=== PATIENT | female | born 1990 | race Caucasian/White ===

== ENCOUNTER 2021-08-30 15:37 | Inpatient (IN) ==
--- NOTE | 2021-08-30 16:14 | Emergency Department Note ---
Impression & Plan Depression with suicidal ideation, Urinary tract infection ED Provider Note NAME: LAUREN ROSE AGE: 31 SEX: F : 1990 ARRIVES VIA: Ambulance INFORMANT: Patient, ED PROVIDER(S): Chandler Mchugh DO CHIEF COMPLAINT: Mental health evaluation HPI: The patient is a 31-year-old female who presented to emergency department for mental health evaluation. The patient states that she has been having problems with thoughts of hurting herself over the last couple days. She was recently discharged from inpatient mental health in [facility] for similar complaints. She states that she has thoughts that she wants to overdose on her medications. She also complains of lower back pain. She denies having any vomiting but has had some nausea. She states she has been having irregular menses as well. She states that she does not feel that she is . She denies having any chest pain or fevers. She did not drink any alcohol today and she denies taking any medications to try to hurt her self. She states that she has been compliant with her outpatient medications. She does have a history of seizures and states that she had a seizure yesterday. ROS: See above HPI for pertinent positives & negatives. A total of 10 systems reviewed and were otherwise negative. PAST MEDICAL HISTORY: See Below PAST SURGICAL HISTORY: See Below FAMILY HISTORY: See Below SOCIAL HISTORY: See Below HOME MEDICATIONS: See Below ALLERGIES: See Below VITALS: See Below PHYSICAL EXAMINATION: GENERAL: Patient is awake alert in no acute distress patient is resting comfortably and showing no signs of anxiety EYES: The conjunctivae are clear. The pupils are round and reactive. EARS, NOSE, MOUTH AND THROAT: The nose is without any evidence of any deformity. NECK: The neck is nontender and supple. RESPIRATORY: Normal respiratory effort is noted there is no evidence of wheezing rhonchi or rales CARDIOVASCULAR: Regular rate and rhythm noted there no murmurs rubs or gallops normal S1 normal S2. GASTROINTESTINAL: The abdomen is soft. Abdomen is nontender. MUSCULOSKELETAL/EXTREMITIES: There is no evidence of gross deformity full range of motion is noted in the hips and shoulders. SKIN: There is no obvious evidence of any rash. There are no petechiae, pallor or cyanosis noted. NEUROLOGIC: Patient is awake alert and oriented x3 strength is symmetric patellar reflexes are 2+ bilaterally PSYCH: Patient makes poor eye contact mostly evaluation. She is currently admitting to suicidal ideation with a plan to overdose on medications. MEDICAL DECISION MAKING: The patient is a 31-year-old female who presented to emergency department for an evaluation of mental health evaluation. The patient had depression with suicidal ideation. She was recently released from a mental health inpatient stay for similar complaints. The patient was medically cleared in the emergency department. She was found to have signs of urinary tract infection on urinal ysis. She was started on antibiotics in the emergency department. She was also treated with pain medication as well as medication for anxiety in emergency department. The patient was evaluated by the mental health outpatient case manager. Triage Nursing notes reviewed. Prior medical records reviewed Vital Signs: reviewed and remarkable for no significant abnormalities Differential diagnosis: Mood disorder, infection, hypoglycemia, electrolyte abnormalities, cardiac sources, intracerebral event, toxicologic, trauma, neurologic, as well as other pathologies. ER treatment provided: See below Diagnostics interpreted by me: ECG: none Laboratory studies: As stated above and show below. Imaging studies: See below Consultation(s): none Past Med/Surg History Medical History (Updated 08/30/21 @ 20:24 by Chandler Mchugh DO) ADHD Asperger's disorder Autism Bipolar affect, depressed Depression with anxiety PTSD (post-traumatic stress disorder) Seizure Surgical History Hx of cholecystectomy Previous section Social History Smoking Status: Current every day smoker Tobacco Type: Cigarettes Feels Safe at Home: No Allergies Allergies Allergy/AdvReac Type Severity Reaction Status Date / Time Penicillins Allergy Unknown childhood Verified 08/30/21 16:08 reaction unknown Home Meds Home Medications Medication Instructions Recorded Confirmed aripiprazole 10 mg tablet 5 mg PO BID 08/30/21 08/30/21 bupropion HCl 100 mg tablet,12 hr 100 mg PO DAILY 08/30/21 08/30/21 sustained-release escitalopram oxalate 20 mg tablet 20 mg PO DAILY 08/30/21 08/30/21 ferrous sulfate 325 mg (65 mg 325 mg PO DAILY 08/30/21 08/30/21 iron) tablet hydroxyzine pamoate 25 mg capsule 25 mg PO BID PRN 08/30/21 08/30/21 ondansetron HCl 8 mg tablet 8 mg PO Q6 PRN 08/30/21 08/30/21 prazosin 2 mg capsule 2 mg PO HS 08/30/21 08/30/21 trazodone 150 mg tablet 150 mg PO HS 08/30/21 08/30/21 Results & Data (ED) Vital Signs Vital Signs - 24 hr 08/30/21 15:42 08/30/21 19:18 Temperature 36.5 C Temperature Source Oral Pulse Rate 86 Pulse Rate [Finger] 78 Pulse Rhythm Regular Pulse Strength Normal Respiratory Rate 18 20 Respiratory Effort / Characteristics Non-Labored Non-Labored Spontaneous Respiratory Depth Normal Respiratory Pattern Regular Blood Pressure 151/112 H Blood Pressure [Right Arm] 131/88 Blood Pressure Mean 125 Blood Pressure Mean [Right Arm] 102 Blood Pressure Position Lying Pulse Oximetry 96 97 Oxygen Delivery Method Room Air Room Air Sepsis Recent Fever Within 48 Hours No Sepsis New/Unexplained Change in Mental Status No Sepsis Action Taken by Nursing No Action Required Home Medications Current Medication List: was personally reviewed by me Laboratory Data Attestation: I reviewed the patient's lab results. Result diagrams: 08/30/21 16:28 08/30/21 16:28 Lab Results 08/30/21 08/30/21 08/30/21 Range/Units 16:28 16:28 16:28 WBC 5.78 (4.8-10.8) K/uL RBC 4.58 (4.2-5.4) M/uL Hgb 11.6 L (12.0-16.0) g/dL Hct 35.4 L (37-47) % MCV 77.3 L (80-100) fL MCH 25.3 (25-34) pg MCHC 32.8 (32-36) g/dL RDW Std Deviation 39.3 (36.4-46.3) fL RDW Coeff of Alejandro 13.9 (11.5-14.5) % Plt Count 196 (130-400) K/uL MPV 10.7 H (7.4-10.4) fL Immature Gran % (Auto) 0.0 % Neut % (Auto) 66.2 % Lymph % (Auto) 25.6 % [place] % (Auto) 4.7 % Eos % (Auto) 3.3 % Baso % (Auto) 0.2 % Neut # (Auto) 3.83 (1.4-6.5) K/uL Lymph # (Auto) 1.48 (1.2-3.4) K/uL [place] # (Auto) 0.27 (0.11-0.59) K/uL Eos # (Auto) 0.19 (0-0.5) K/uL Baso # (Auto) 0.01 (0-0.2) K/uL Immature Gran # (Auto) 0.00 (0.00-0.02) K/uL Sodium 137 (136-145) mmol/L Potassium 3.6 (3.5-5.1) mmol/L Chloride 103 (98-107) mmol/L Carbon Dioxide 26 (21-32) mmol/L Anion Gap 8 (3-11) BUN 7 (6-23) mg/dl Creatinine 0.63 (0.6-1.2) mg/dl Est Cr Clr Drug Dosing 180.2 ml/min Est GFR ( Amer) 140.5 ml/min Est GFR (Non-Af Amer) 121.2 ml/min BUN/Creatinine Ratio 11.1 (10-20) Glucose 100 H (70-99(Fasting)) mg/dl Calcium 9.3 (8.5-10.1) mg/dl Total Bilirubin 0.9 (0.2-1.0) mg/dl AST 23 (13-39) U/L ALT 28 (7-52) U/L Alkaline Phosphatase 72 (34-104) U/L Total Protein 7.4 (6.0-8.3) gm/dl Albumin 4.1 (3.4-5.0) gm/dl Globulin 3.3 (2.5-4.0) gm/dl Albumin/Globulin Ratio 1.2 (0.9-2) TSH 1.013 (0.300-4.500) uIu/ml HCG, Qual (Negative) Urine Color Urine Appearance (Clear) Urine pH (4.5-7.5) Ur Specific [place] (1.000-1.030) Urine Protein (Negative) Urine Glucose (UA) (Negative) Urine Ketones (Negative) Urine Blood (Negative) Urine Nitrite (Negative) Urine Bilirubin (Negative) Urine Urobilinogen (Negative) Ur Leukocyte Esterase (Negative) Urine WBC (Auto) (0-5) /hpf Urine RBC (Auto) (0-4) /hpf U Hyaline Cast (Auto) (0-5) /lpf U Epithel Cells (Auto) (0-5) /lpf Urine Bacteria (Auto) (Negative) Salicylates (3.0-30) mg/dl Urine Opiates Screen (Neg) Ur Methadone, Qual (Neg) Acetaminophen (10-30) ug/ml Urine Barbiturates (Neg) Ur Phencyclidine (PCP) (Neg) U Amphetamin/Meth Scrn (Neg) MDMA (Ecstasy) Screen (Neg) U Benzodiazepines Scrn (Neg) Ur Cocaine Metabolite (Neg) U Marijuana (THC) Screen (Neg) Ethyl Alcohol mg/dL (<10.0) mg/dl SARS-CoV-2, RNA, NAAT (NEGATIVE) 08/30/21 08/30/21 08/30/21 Range/Units 16:28 16:28 16:28 WBC (4.8-10.8) K/uL RBC (4.2-5.4) M/uL Hgb (12.0-16.0) g/dL Hct (37-47) % MCV (80-100) fL MCH (25-34) pg MCHC (32-36) g/dL RDW Std Deviation (36.4-46.3) fL RDW Coeff of Alejandro (11.5-14.5) % Plt Count (130-400) K/uL MPV (7.4-10.4) fL Immature Gran % (Auto) % Neut % (Auto) % Lymph % (Auto) % [place] % (Auto) % Eos % (Auto) % Baso % (Auto) % Neut # (Auto) (1.4-6.5) K/uL Lymph # (Auto) (1.2-3.4) K/uL [place] # (Auto) (0.11-0.59) K/uL Eos # (Auto) (0-0.5) K/uL Baso # (Auto) (0-0.2) K/uL Immature Gran # (Auto) (0.00-0.02) K/uL Sodium (136-145) mmol/L Potassium (3.5-5.1) mmol/L Chloride (98-107) mmol/L Carbon Dioxide (21-32) mmol/L Anion Gap (3-11) BUN (6-23) mg/dl Creatinine (0.6-1.2) mg/dl Est Cr Clr Drug Dosing ml/min Est GFR ( Amer) ml/min Est GFR (Non-Af Amer) ml/min BUN/Creatinine Ratio (10-20) Glucose (70-99(Fasting)) mg/dl Calcium (8.5-10.1) mg/dl Total Bilirubin (0.2-1.0) mg/dl AST (13-39) U/L ALT (7-52) U/L Alkaline Phosphatase (34-104) U/L Total Protein (6.0-8.3) gm/dl Albumin (3.4-5.0) gm/dl Globulin (2.5-4.0) gm/dl Albumin/Globulin Ratio (0.9-2) TSH (0.300-4.500) uIu/ml HCG, Qual Negative (Negative) Urine Color Urine Appearance (Clear) Urine pH (4.5-7.5) Ur Specific [place] (1.000-1.030) Urine Protein (Negative) Urine Glucose (UA) (Negative) Urine Ketones (Negative) Urine Blood (Negative) Urine Nitrite (Negative) Urine Bilirubin (Negative) Urine Urobilinogen (Negative) Ur Leukocyte Esterase (Negative) Urine WBC (Auto) (0-5) /hpf Urine RBC (Auto) (0-4) /hpf U Hyaline Cast (Auto) (0-5) /lpf U Epithel Cells (Auto) (0-5) /lpf Urine Bacteria (Auto) (Negative) Salicylates < 3.0 L (3.0-30) mg/dl Urine Opiates Screen (Neg) Ur Methadone, Qual (Neg) Acetaminophen < 3 L (10-30) ug/ml Urine Barbiturates (Neg) Ur Phencyclidine (PCP) (Neg) U Amphetamin/Meth Scrn (Neg) MDMA (Ecstasy) Screen (Neg) U Benzodiazepines Scrn (Neg) Ur Cocaine Metabolite (Neg) U Marijuana (THC) Screen (Neg) Ethyl Alcohol mg/dL < 10.0 (<10.0) mg/dl SARS-CoV-2, RNA, NAAT (NEGATIVE) 08/30/21 08/30/21 08/30/21 Range/Units 17:50 17:50 19:42 WBC (4.8-10.8) K/uL RBC (4.2-5.4) M/uL Hgb (12.0-16.0) g/dL Hct (37-47) % MCV (80-100) fL MCH (25-34) pg MCHC (32-36) g/dL RDW Std Deviation (36.4-46.3) fL RDW Coeff of Alejandro (11.5-14.5) % Plt Count (130-400) K/uL MPV (7.4-10.4) fL Immature Gran % (Auto) % Neut % (Auto) % Lymph % (Auto) % [place] % (Auto) % Eos % (Auto) % Baso % (Auto) % Neut # (Auto) (1.4-6.5) K/uL Lymph # (Auto) (1.2-3.4) K/uL [place] # (Auto) (0.11-0.59) K/uL Eos # (Auto) (0-0.5) K/uL Baso # (Auto) (0-0.2) K/uL Immature Gran # (Auto) (0.00-0.02) K/uL Sodium (136-145) mmol/L Potassium (3.5-5.1) mmol/L Chloride (98-107) mmol/L Carbon Dioxide (21-32) mmol/L Anion Gap (3-11) BUN (6-23) mg/dl Creatinine (0.6-1.2) mg/dl Est Cr Clr Drug Dosing ml/min Est GFR ( Amer) ml/min Est GFR (Non-Af Amer) ml/min BUN/Creatinine Ratio (10-20) Glucose (70-99(Fasting)) mg/dl Calcium (8.5-10.1) mg/dl Total Bilirubin (0.2-1.0) mg/dl AST (13-39) U/L ALT (7-52) U/L Alkaline Phosphatase (34-104) U/L Total Protein (6.0-8.3) gm/dl Albumin (3.4-5.0) gm/dl Globulin (2.5-4.0) gm/dl Albumin/Globulin Ratio (0.9-2) TSH (0.300-4.500) uIu/ml HCG, Qual (Negative) Urine Color Dark Yellow Urine Appearance Cloudy A (Clear) Urine pH 6.0 (4.5-7.5) Ur Specific [place] 1.027 (1.000-1.030) Urine Protein 1+ H (Negative) Urine Glucose (UA) Negative (Negative) Urine Ketones Trace H (Negative) Urine Blood 3+ H (Negative) Urine Nitrite Negative (Negative) Urine Bilirubin Negative (Negative) Urine Urobilinogen Negative (Negative) Ur Leukocyte Esterase 2+ H (Negative) Urine WBC (Auto) >30 H (0-5) /hpf Urine RBC (Auto) >30 H (0-4) /hpf U Hyaline Cast (Auto) 1-5 (0-5) /lpf U Epithel Cells (Auto) >30 H (0-5) /lpf Urine Bacteria (Auto) 1+ H (Negative) Salicylates (3.0-30) mg/dl Urine Opiates Screen Neg (Neg) Ur Methadone, Qual Neg (Neg) Acetaminophen (10-30) ug/ml Urine Barbiturates Neg (Neg) Ur Phencyclidine (PCP) Neg (Neg) U Amphetamin/Meth Scrn Neg (Neg) MDMA (Ecstasy) Screen Pos H (Neg) U Benzodiazepines Scrn Neg (Neg) Ur Cocaine Metabolite Neg (Neg) U Marijuana (THC) Screen Pos H (Neg) Ethyl Alcohol mg/dL (<10.0) mg/dl SARS-CoV-2, RNA, NAAT NEGATIVE (NEGATIVE) Administered Medications Aripiprazole (Aripiprazole 10 Mg Tab) 5 mg PO BID DAVE Stop: 09/29/21 20:59 Last Admin: 08/30/21 21:18 Dose: 5 mg Documented by: [id number] Prazosin HCl (Prazosin Hcl 1 Mg Cap) 2 mg PO HS DAVE Stop: 09/29/21 20:59 Last Admin: 08/30/21 21:18 Dose: 2 mg Documented by: [id number] Trazodone HCl (Trazodone Hcl 50 Mg Tab) 150 mg PO HS DAVE Stop: 09/29/21 20:59 Last Admin: 08/30/21 21:18 Dose: 150 mg Documented by: [id number] Discontinued Medications Acetaminophen (Acetaminophen 500 Mg Tab) 1,000 mg PO NOW STA Stop: 08/30/21 16:16 Last Admin: 08/30/21 16:44 Dose: 1,000 mg Documented by: [id number] Cefdinir (Cefdinir 300 Mg Cap) 600 mg PO ONE STA Stop: 08/30/21 20:19 Last Admin: 08/30/21 20:51 Dose: 600 mg Documented by: [id number] Lorazepam (Lorazepam 1 Mg Tab) 1 mg PO NOW STA Stop: 08/30/21 17:02 Last Admin: 08/30/21 17:15 Dose: 1 mg Documented by: [id number] Oxycodone HCl (Oxycodone Hcl Ir 5 Mg Tab (Immediate Release)) 5 mg PO NOW STA Stop: 08/30/21 20:19 Last Admin: 08/30/21 20:51 Dose: 5 mg Documented by: [id number] Imaging Data Radiologist's Impression: Patient: LAUREN ROSE (Female) : 89 Status: ER Date: 08/30/21 20:37 Room #: History: B/L FLANK PAIN APPENDIX PRESENT PT WAS MOVING DURING SCAN -PREG EK/DG Slices: [id number] Priors: Tech: Peng Alba @ [id number] Exams: CT ABDOMEN & PELVIS Without Contrast Contrast: Accession Numbers: [id number] Referring Physician: REFERRED SELF Preliminary Findings Only See Final Report For Complete Findings CT ABDOMEN & PELVIS Without Contrast: Impression: Normal appendix. No evidence of hydronephrosis or nephrolithiasis. Cholecystectomy. Mild splenomegaly measuring 14.8 cm in length. Radiologist: Wilfrido Farnsworth MD Study ready at 20:41 and initial results transmitted at 20:45 Discharge Plan Visit Data Chief Complaint: Mental Health Evaluation Stated Complaint: [facility]ID ED Provider: Chandler Mchugh Discharge Problem: Depression with suicidal ideation, Urinary tract infection Patient Disposition: Still a Patient Forms Stand Alone Forms: [facility] [employer], Suicide Prevention Resources Prescriptions Prescriptions: No Action bupropion HCl 100 mg Tablet Sustained-Release 12 Hr 100 mg PO DAILY RF: 0 trazodone 150 mg Tablet 150 mg PO HS RF: 0 prazosin 2 mg Capsule 2 mg PO HS RF: 0 hydroxyzine pamoate 25 mg Capsule 25 mg PO BID PRN (Reason: Anxiety) RF: 0 escitalopram oxalate 20 mg Tablet 20 mg PO DAILY RF: 0 aripiprazole 10 mg Tablet 5 mg PO BID RF: 0 ondansetron HCl 8 mg Tablet 8 mg PO Q6 PRN (Reason: Nausea) RF: 0 ferrous sulfate 325 mg (65 mg iron) Tablet 325 mg PO DAILY RF: 0 Referrals Referrals: PCP,NO [Primary Care Provider] - Discharge Problem: Urinary tract infection Qualifiers: Urinary tract infection type: site unspecified Hematuria presence: with hematuria Qualified Code(s): N39.0 - Urinary tract infection, site not specified
[2021-08-30] MEDS ORDERED: ACETAMINOPHEN 500 MG TAB PO STA (16:15)
[2021-08-30 16:40] LABS: Basophils # (auto) 0.01 K/uL (0-0.2); Basophils % (auto) 0.2 %; Eosinophils # (auto) 0.19 K/uL (0-0.5); Eosinophils % (auto) 3.3 %; Hematocrit (blood only) 35.4 % (37-47); Hemoglobin 11.6 g/dL (12.0-16.0); Lymphocytes # (auto) 1.48 K/uL (1.2-3.4); Lymphocytes % (auto) 25.6 %; Mean Corpuscular Hemoglobin 25.3 pg (25-34); Mean Corpuscular Hgb Conc 32.8 g/dL (32-36); Mean Corpuscular Volume 77.3 fL (80-100); Mean Platelet Volume 10.7 fL (7.4-10.4); Monocytes # (auto) 0.27 K/uL (0.11-0.59); Monocytes % (auto) 4.7 %; Neutrophils # (auto) 3.83 K/uL (1.4-6.5); Neutrophils % (auto) 66.2 %; Platelet Count 196 K/uL (130-400); RDW Coefficient of Variation 13.9 % (11.5-14.5); RDW Standard Deviation 39.3 fL (36.4-46.3); Red Blood Count 4.58 M/uL (4.2-5.4); White Blood Count 5.78 K/uL (4.8-10.8)
[2021-08-30 16:58] LABS: Albumin Globulin Ratio 1.2 (0.9-2); Albumin Level 4.1 gm/dl (3.4-5.0); BUN Creatinine Ratio 11.1 (10-20); Bilirubin,Total 0.9 mg/dl (0.2-1.0); Calcium 9.3 mg/dl (8.5-10.1); Creatinine Clr Calc Pharmacy 180.2 ml/min; Est GFR (African American) 140.5 ml/min; Est GFR (Non-African American) 121.2 ml/min; Globulin 3.3 gm/dl (2.5-4.0); Potassium 3.6 mmol/L (3.5-5.1); Total Protein 7.4 gm/dl (6.0-8.3)
[2021-08-30] MEDS ORDERED: LORazepam 1 MG TAB PO STA (17:01)
[2021-08-30 17:06] LABS: Pregnancy Test, Serum Negative (Negative)
[2021-08-30 17:11] LABS: Acetaminophen < 3 ug/ml (10-30); Salicylate < 3.0 mg/dl (3.0-30)
[2021-08-30 18:15] LABS: Appearance Urine Cloudy (Clear); Bacteria Urine Automated 1+ (Negative); Bilirubin Urine Negative (Negative); Blood Urine 3+ (Negative); Color Urine Dark Yellow; Epithelial Cell Urine Auto >30 /lpf (0-5); Glucose Urine UA Negative (Negative); Ketones Urine Trace (Negative); Leukocyte Esterase Urine 2+ (Negative); Nitrite Urine Negative (Negative); Protein Urine 1+ (Negative); RBC Urine Automated >30 /hpf (0-4); Specific Gravity Urine 1.027 (1.000-1.030); Urobilinogen Urine Negative (Negative); WBC Urine Automated >30 /hpf (0-5)
[2021-08-30 18:32] LABS: Amphetamines+Metham, Urine Neg (Neg); Barbiturates, Urine Neg (Neg); Benzodiazepine, Urine Neg (Neg); Cocaine, Urine Neg (Neg); MDMA (Ecstacy), Urine Pos (Neg); Methadone, Urine Neg (Neg); Opiate, Urine Neg (Neg); Phencyclidine, Urine Neg (Neg)
[2021-08-30] MEDS ORDERED: oxyCODONE HCL IR 5 MG TAB (IMMEDIATE RELEASE) PO STA (20:18)
[2021-08-30] MEDS ORDERED: CEFDINIR 300 MG CAP PO STA (20:18)
[2021-08-30] MEDS ORDERED: ONDANSETRON HCL 8 MG PO PRN (20:20)
[2021-08-30] MEDS ORDERED: hydrOXYzine HCl 25 MG TAB PO PRN ×3 (20:20→21:37)
[2021-08-30] MEDS ORDERED: PRAZOSIN HCL 1 MG CAP PO SCH (21:00)
[2021-08-30] MEDS ORDERED: traZODone HCL 50 MG TAB PO SCH (21:00)
[2021-08-30] MEDS: ARIPiprazole 10 MG TAB PO SCH (21:18)
[2021-08-30] MEDS ORDERED: BISMUTH SUBSALICYLATE LIQD 236 ML PO PRN (21:37)
[2021-08-30] MEDS ORDERED: ACETAMINOPHEN 325 MG TAB PO PRN (21:37)
[2021-08-30] MEDS ORDERED: MAGNESIUM HYDROXIDE SUSP 30 ML UDC PO PRN (21:37)
[2021-08-30] MEDS ORDERED: ALUMINUM/MAGNESIUM SUSP 30 ML UDC PO PRN (21:37)
[2021-08-30] MEDS ORDERED: SODIUM CHLORIDE 0.65% NA SOLN 45 ML (OCEAN) PRN (21:37)
--- NOTE | 2021-08-31 06:24 | CT Scan Report ---
CT SCAN OF THE ABDOMEN AND PELVIS WITHOUT IV CONTRAST CLINICAL HISTORY: Bilateral flank pain. COMPARISON STUDY: No priors. TECHNIQUE: CT scan of the abdomen and pelvis is performed from the lung bases to the proximal femora. Images are reviewed in the axial, sagittal, and coronal planes. IV contrast was not administered for this examination. A dose lowering technique was utilized adhering to the principles of ALARA. CT DOSE: 3630.16 mGy.cm FINDINGS: Lung bases: The heart is normal in size and without pericardial effusion. The lung bases are clear. Liver: The unenhanced liver is enlarged, measuring 21.8 cm in length. The liver demonstrates diffusel y diminished attenuation consistent with hepatic steatosis. There is no intrahepatic biliary ductal d ilatation. Gallbladder: Surgically absent noting clips in the gallbladder fossa. Spleen: The spleen is enlarged measuring 15 cm in length. Pancreas: Unremarkable. Adrenal glands: Unremarkable. Kidneys: The unenhanced kidneys are normal in size and without hydronephrosis. There are no renal reddy culi identified. There is no evidence of contour deforming renal mass lesion. Abdominal vasculature: The abdominal aorta is normal in course and caliber. Bowel: There is no bowel obstruction. The appendix is well-visualized and normal. Peritoneum: There is no intraperitoneal free air or abdominal ascites. Lymphadenopathy: None. Pelvic viscera: The bladder is decompressed and grossly unremarkable. The uterus and adnexa are jose manuel l as visualized noting small ovarian follicles. Skeletal structures: No lytic or blastic lesions are seen. IMPRESSION: 1. There are no acute infectious or inflammatory findings in the abdomen or pelvis. 2. Hepatomegaly and hepatic steatosis. 3. Splenomegaly. 4. Additional findings as above. ACT 112: Negative or not required by law. Electronically signed by: Peng Fernández M.D. 08/31/2021 6:23 AM
[2021-08-31] MEDS ORDERED: NICOTINE POLACRILEX 2 MG GUM MT PRN (08:39)
[2021-08-31] MEDS ORDERED: ONDANSETRON 4 MG OD TAB PO PRN (08:50)
[2021-08-31] MEDS ORDERED: FERROUS SULFATE 325 MG TAB PO SCH (09:00)
[2021-08-31] MEDS ORDERED: ESCITALOPRAM OXALATE 20 MG TAB PO SCH (09:00)
[2021-08-31] MEDS ORDERED: buPROPion SR 100 MG TABCR PO SCH (09:00)
[2021-08-31] MEDS ORDERED: NON-FORMULARY MEDICATION (Ferrous Sulfate 325 mg (65 mg iron) Tablet) PO SCH (09:00)
[2021-08-31] MEDS: ARIPiprazole 10 MG TAB PO SCH (09:09)
[2021-08-31] MEDS: NICOTINE 21 MG/24 HR TDSY TD SCH (09:11)
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
[2021-08-31] MEDS: ARIPiprazole 5 MG TAB PO SCH (20:39)
[2021-08-31] MEDS ORDERED: MELATONIN 3 MG TAB PO ONE (20:43)
[2021-08-31] MEDS ORDERED: traZODone HCL 100 MG TAB PO SCH ×2 (22:00)
[2021-08-31] MEDS ORDERED: MELATONIN 3 MG TAB PO SCH (22:00)
[2021-08-31] MEDS ORDERED: PRAZOSIN HCL 1 MG CAP PO SCH (22:00)
[2021-09-01] MEDS: ARIPiprazole 5 MG TAB PO SCH (08:32)
[2021-09-01] MEDS: NICOTINE 21 MG/24 HR TDSY TD SCH ×2 (08:37→09:21)
[2021-09-01 08:44] LABS: Chol HDL Ratio 6.8 (0-5)
[2021-09-01] MEDS ORDERED: FERROUS SULFATE 325 MG TAB PO SCH (09:00)
[2021-09-01] MEDS ORDERED: ESCITALOPRAM OXALATE 20 MG TAB PO SCH (09:00)
[2021-09-01] MEDS ORDERED: buPROPion XL 150 MG TABCR PO SCH (09:00)
[2021-09-01] MEDS ORDERED: ATENOLOL 50 MG TABLET PO SCH (09:00)
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
[2021-09-01] MEDS ORDERED: DESTROY THIS MEDICATION ONE (10:00)
[2021-09-04 10:18] LABS: MDA negative; MDEA negative; MDMA (Ecstasy) Urine, Confirm negative; Marijuana Quant, GCMS Urine 38 ng/mL (<5)
== END 2021-09-01 12:20 | disposition home or self-care (01) | DRG 885 ==
LOC: ED 15:37 → 3S 21:37